=== PATIENT | male | born 2000 | race African-American/Black ===

== ENCOUNTER 2023-08-24 19:44 | Emergency (ER) | payer SELFPAY ==
[~2023-08-24] VITALS: Ht 188 cm; Wt 104.5 kg
[~2023-08-24 19:44] MED LIST: CEPHALEXIN500 M1 PO; CETIRIZINE; NO HOME MEDICATIONS; PREDNISONE10 MG PO; ZOLOFT 100MG100 MG PO
[2023-08-24 20:23] LABS: STREP A NEGATIVE
[2023-08-24] MEDS ORDERED: Acetaminophen 500 MG TAB PO ONE (20:30)
[2023-08-24 21:10] VITALS: BP 146/83; PULSE 109; TEMP 98.9
== END 2023-08-24 21:10 | disposition home or self-care (01) ==
LOC: COL.ER 19:44
PROVIDERS: Emergency Medicine
DX: J10.1 Influenza due to other identified influenza virus with other respiratory manifestations (principal)